=== PATIENT | male | born 1945 | race Caucasian/White ===

== ENCOUNTER 2019-03-13 12:19 | Emergency (ER) | payer OTHER, MEDICARE ==
[~2019-03-13] VITALS: Ht 180.3 cm; Wt 111.1 kg
[2019-03-13 12:32] VITALS: BP_SYST 154
--- NOTE | 2019-03-13 13:00 | NUR ---
Called for patient, unable to locate.
--- NOTE | 2019-03-13 13:10 | NUR ---
Called for patient, unable to locate.
--- NOTE | 2019-03-13 13:30 | NUR ---
Unable to locate patient after 3 attempts. Patient is presumed to have LWBS.
== END 2019-03-13 13:31 | disposition left against medical advice (07) ==
LOC: SED 12:19
DX: K59.00 Constipation, unspecified (principal); Z53.21 Procedure and treatment not carried out due to patient leaving prior to being seen by health care provider